=== PATIENT | female | born 1940 | race Caucasian/White ===

== ENCOUNTER 2020-02-25 11:26 | Emergency (ER) | payer OTHER ==
[2020-02-25 12:29] LABS: BILIRUBIN 1+ mg/dL (NEGATIVE); BLOOD NEGATIVE Ery/uL (NEGATIVE); CLARITY CLEAR (CLEAR); COLOR YELLOW (YELLOW); GLUCOSE (U) 1+ mg/dL (NORMAL); LEUKOCYTES TRACE Leu/uL (NEGATIVE); NITRITE NEGATIVE (NEGATIVE); PROTEIN NEGATIVE (NEGATIVE); SPECIFIC GRAVITY >=1.030 (1.001-1.030); pH 5.5 (5.0-9.0)
[2020-02-25 12:42] LABS: BACTERIA 2+
[2020-02-25 12:51] LABS: BASOPHIL 0.6 % (0-2); EOSINOPHIL 1.8 % (0-7); HCT 43.6 % (37.0-47.0); HGB 14.1 g/dl (12.5-16.0); LYMPHOCYTE 25.2 % (15-48); MCH 30.9 pg (25.0-31.0); MCHC 32.3 g/dL (32.0-36.0); MCV 95.6 fL (78.0-100.0); MONOCYTE 9.1 % (0-12); MPV 11.2 fL (6.0-9.5); NEUTROPHIL 62.6 % (41-80); NRBC 0; PLT 234 K/uL (150-400); RBC 4.56 M/uL (4.20-5.40); RDW 12.8 % (11.5-14.0); WBC 10.8 K/uL (4.0-10.5)
[2020-02-25 13:12] LABS: ALBUMIN 2.9 g/dL (3.4-5.0); BILIRUBIN - TOTAL 0.7 mg/dL (0.2-1.0); BUN/CREAT RATIO (CALC) 15.3 RATIO; CREATININE 0.98 mg/dL (0.51-0.95); GLOBULIN (CALCULATION) 4.1 g/dL
== END 2020-02-25 15:27 | disposition home or self-care (01) ==
LOC: FER 11:26
PROVIDERS: Emergency Medicine
DX: R41.0 Disorientation, unspecified (principal); Z91.14 Patient's other noncompliance with medication regimen; I48.91 Unspecified atrial fibrillation; E11.9 Type 2 diabetes mellitus without complications; I10 Essential (primary) hypertension
CPT/HCPCS: 36415; 71045; 80053; 81001; 84443; 85025; 93005

== ENCOUNTER 2021-12-13 14:27 | Inpatient (IN) | payer OTHER ==
[~2021-12-13] VITALS: Ht 162.6 cm; Wt 103.9 kg
[2021-12-13 15:24] LABS: BASOPHIL 0.3 % (0-2); EOSINOPHIL 2.4 % (0-7); HCT 40.8 % (37.0-47.0); HGB 13.9 g/dl (12.5-16.0); LYMPHOCYTE 22.7 % (15-48); MCH 30.1 pg (25.0-31.0); MCHC 34.1 g/dL (32.0-36.0); MCV 88.3 fL (78.0-100.0); MONOCYTE 9.8 % (0-12); MPV 12.4 fL (6.0-9.5); NEUTROPHIL 64.1 % (41-80); NRBC 0; PLT 171 K/uL (150-400); RBC 4.62 M/uL (4.20-5.40); RDW 12.9 % (11.5-14.0); WBC 5.9 K/uL (4.0-10.5)
[2021-12-13 15:28] LABS: INR 1.07 (0.9-1.2); PROTHROMBIN TIME 13.6 SECONDS (11.9-13.9); PTT 26.7 SECONDS (24.9-34.6)
[2021-12-13 15:46] LABS: ALBUMIN 2.5 g/dL (3.4-5.0); BUN/CREAT RATIO (CALC) 15.9 RATIO; CREATININE 1.13 mg/dL (0.51-0.95); FT4 (FREE T4) 1.6 ng/dL (0.76-1.46); GLOBULIN (CALCULATION) 4.8 g/dL; MAGNESIUM 1.3 mg/dL (1.8-2.4); POTASSIUM 3.1 mmol/L (3.5-5.1); TOTAL PROTEIN 7.3 g/dL (6.4-8.2)
[2021-12-13 15:48] LABS: LACTIC ACID 3.3 mmol/L (0.4-1.9)
[2021-12-13 16:44] LABS: BILIRUBIN NEGATIVE (NEGATIVE); BLOOD NEGATIVE Ery/uL (NEGATIVE); CLARITY CLEAR (CLEAR); COLOR YELLOW (YELLOW); GLUCOSE (U) 3+ mg/dL (NORMAL); LEUKOCYTES NEGATIVE Leu/uL (NEGATIVE); NITRITE NEGATIVE (NEGATIVE); PROTEIN NEGATIVE (NEGATIVE)
[2021-12-13] MEDS ORDERED: LIPITOR40 MG PO (19:59)
[2021-12-13] MEDS ORDERED: ELIQUIS5 MG PO (19:59)
[2021-12-13] MEDS ORDERED: CYMBALTA 30MG C30 MG PO (20:13)
[2021-12-13] MEDS ORDERED: CARDIZEM CD180 MG PO (20:13)
[2021-12-13] MEDS ORDERED: K-TAB ER10 MEQ PO (20:14)
[2021-12-13] MEDS ORDERED: TENORMIN50 MG PO (20:14)
[2021-12-13] MEDS ORDERED: ASPIRIN EC81 MG PO (20:15)
[2021-12-13] MEDS ORDERED: ATARAX25 MG PO (20:15)
[2021-12-13] MEDS ORDERED: FUROSEMIDE40 MG PO (20:15)
[2021-12-13] MEDS ORDERED: LANTUS SOL100 UNIT/1 SC (20:17)
[2021-12-13] MEDS ORDERED: ACCUPRIL40 MG PO (20:17)
[2021-12-13] MEDS ORDERED: HYDROCODON-ACE1 EAC2 PO (20:20)
[2021-12-14 06:10] LABS: BASOPHIL 0.5 % (0-2); EOSINOPHIL 0.5 % (0-7); HGB 13.6 g/dl (12.5-16.0); LYMPHOCYTE 44.4 % (15-48); MCH 30.6 pg (25.0-31.0); MCV 89.9 fL (78.0-100.0); MONOCYTE 12.9 % (0-12); MPV 11.8 fL (6.0-9.5); NEUTROPHIL 41.2 % (41-80); NRBC 0; PLT 191 K/uL (150-400); RBC 4.45 M/uL (4.20-5.40); RDW 12.8 % (11.5-14.0)
[2021-12-14 07:47] LABS: BUN/CREAT RATIO (CALC) 12.2 RATIO; CREATININE 0.9 mg/dL (0.51-0.95); POTASSIUM 3.2 mmol/L (3.5-5.1)
--- NOTE | 2021-12-14 14:41 | NUR ---
SPOKE WITH MS. OSEGUERA WHO IS ALERT AND ORIENTED X'S 4. PT STATES SHE LIVES IN HER HOME AND SON, AYDEN AND DAUGHTER IN [place] OSEGUERA LIVE WITH HER. HELPS HER WITH ANY NEEDS AND AROUND HOUSE. MS. OSEGUERA ALSO STATES SHE HAS BOTH A WALKER AND CANE AT HOME AND DOES NOT NEED ANY OTHER EQUIPMENT. PT INFORMED THAT HH WITH THERAPY WAS RECOMMENDED, PT STATED SHE WAS NOT INTERESTED IN HH/THERAPY AT THIS TIME.
[2021-12-15 06:49] LABS: BUN/CREAT RATIO (CALC) 11.5 RATIO; CREATININE 0.96 mg/dL (0.51-0.95); POTASSIUM 3.5 mmol/L (3.5-5.1)
[2021-12-15] MEDS ORDERED: MAG-OXIDE 400M400 MG PO (10:38)
== END 2021-12-15 13:23 | disposition home or self-care (01) | DRG 308 ==
LOC: FER 14:27 → FTCU 16:14
PROVIDERS: Family Medicine; Internal Medicine; ADMIT Allergy & Immunology Allergy
PROC: 8E0ZXY6 Isolation (ICD-10-PCS; principal; 2021-12-13)
DX: I48.91 Unspecified atrial fibrillation (principal); U07.1 COVID-19; N17.9 Acute kidney failure, unspecified; E83.42 Hypomagnesemia; E87.6 Hypokalemia; Z66 Do not resuscitate; Z28.310 Unvaccinated for COVID-19; I13.10 Hypertensive heart and chronic kidney disease without heart failure, with stage 1 through stage 4 chronic kidney disease, or unspecified chronic kidney disease; E11.22 Type 2 diabetes mellitus with diabetic chronic kidney disease; N18.30 Chronic kidney disease, stage 3 unspecified; R79.89 Other specified abnormal findings of blood chemistry; Z96.651 Presence of right artificial knee joint; E78.5 Hyperlipidemia, unspecified; F32.A Depression, unspecified; F41.9 Anxiety disorder, unspecified; Z79.4 Long term (current) use of insulin; Z79.899 Other long term (current) drug therapy
CPT/HCPCS: 36415; 71045; 80048; 80053; 81003; 82962; 83036; 83605; 83735; 83880; 84439; 84443; 84484; 85025; 85610; 85730; 86140; 87040; 93005; 97162; 97530-GP; J1815; J1940; J3475; J7030; U0002